=== PATIENT | female | born 1955 | race Caucasian/White ===

== ENCOUNTER 2017-03-25 09:11 | Emergency (ER) | payer OTHER ==
[2017-03-25 10:42] LABS: Hematocrit 42 % (35-47); Hemoglobin 14.5 g/dl (12.0-16.0); Mean Corpuscular HGB Conc 35 g/dl (31-36); Mean Corpuscular Hemoglobin 32 pg (27-31); Mean Corpuscular Volume 91 fL (80-97); Mean Platelet Volume 8 um3 (7.4-10.4); Red Blood Count 4.58 10^6/ul (4.0-5.4); Red Cell Distribution Width 13 % (10.5-15); White Blood Count 8.2 10^3/ul (3.5-10.8)
[2017-03-25 10:58] LABS: ALT 14 U/L (7-52); AST 18 U/L (13-39); Albumin 4.6 g/dL (3.2-5.2); Alkaline Phosphatase 81 U/L (34-104); Anion Gap 11 mmol/L (2-11); BUN/Creatinine Ratio 22.2 (8-20); Blood Urea Nitrogen 16 mg/dL (6-24); CO2 Carbon Dioxide 24 mmol/L (22-32); Calcium 10.1 mg/dL (8.6-10.3); Chloride 100 mmol/L (101-111); EGFR African American 105.9 (>60); EGFR Non-African American 82.3 (>60); Globulin 2.8 g/dL (2-4); Glucose 114 mg/dL (70-100); Potassium 3.6 mmol/L (3.5-5.0); Sodium 135 mmol/L (133-145); Total Protein 7.4 g/dL (6.4-8.9)
[2017-03-25 11:12] LABS: C Reactive Protein 3.64 mg/L (< 5.00); Magnesium 1.6 mg/dL (1.9-2.7)
[2017-03-25 11:24] LABS: Acetaminophen < 15 mcg/mL; Alcohol < 10 mg/dL (<10); Salicylate < 2.50 mg/dL (<30)
[2017-03-25 11:39] LABS: TSH (Thyroid Stimulating Horm) 0.16 mcIU/mL (0.34-5.60)
[2017-03-25] MEDS ORDERED: Magnesium Oxide TAB* 400 MG PO ONE (12:32)
--- NOTE | 2017-03-25 12:58 | ED ---
Complex/Multi-Sys Presentation - HPI Summary HPI Summary: Pt here w/ multiple sx. Has had anxiety which is worsening d/t work situation ( employed at [employer]). She is in counseling and taking zoloft but anxiety worse despite these therapies. She is here today as she has persistent tinnitus (has this intermittently since childhood but never this long in duration). She also had a 1 x episode of tunnel vision while writing out a list but this corrected and has not returned - no other changes in vision. Furthermore she has intermittent chest pain but reports she has discussed this w/ her PCP and had w/ u. She also states she's not having chest pain now. Gets intermittent SOB w/ acute anxiety situations - this improves when anxiety improves. Reports mild and brief epistaxis this morning - she was able to control this with applying pressure - resolved and no return. She is prone to epistaxis and admits her house is dry. No other areas of bleeding/bruising upon inquiry, no h/o bleeding d/o and no anti-coagulants. She has HTN (controlled with medications), hypercholesterolemia and thyroid d/o (this gland was removed in her youth). She' s been on replacement hormone daily - takes synthroid which was greatly reduced recently 2 months ago - feels only in the past 2 days that her heart palpitations have resolved. Has not had repeat thyroid labs since reduction of dose that she's aware. Additionally admits she holds her stress in her abdomen and had excessive diarrhea Monday - stomach is uncomfortable in general/IBS? Denies yo pain and no dysuria, vaginal d/c. Upon review of blood pressure today, pt reports she's typically in the 110's systolic so 150s' is high for her. "Pre-diabetes" - hga1c <6 but PCP has her on metformin for prophylaxis Fam h/o Cardiac events in 40's. No recent head injury. - History Of Current Complaint Chief Complaint: EDGeneral Time Seen by Provider: 03/25/17 09:57 Hx Obtained From: Patient - Allergies/Home Medications Allergies/Adverse Reactions: Allergies Allergy/AdvReac Type Severity Reaction Status Date / Time seafood Allergy Unknown Vomiting Uncoded 10/12/12 13:14 PMH/Surg Hx/FS Hx/Imm Hx Previously Healthy: No - thyroid medication dose currently being adjusted Endocrine/Hematology History: Reports: Hx Diabetes - prophylaxis - takes metformin, Hx Thyroid Disease - hypo Cardiovascular History: Reports: Hx Hypercholesterolemia - statin, Hx Hypertension - beta olman Respiratory History: Reports: Other Respiratory Problems/Disorders - ex-smoker GI History: Reports: Hx Irritable Bowel - ?? Psychiatric History: Reports: Hx Anxiety, Hx Depression - Cancer History Hx Chemotherapy: No Hx Radiation Therapy: No - Surgical History Surgery Procedure, Year, and Place: 1974 [place]- hyperthyroid, 1980 [place]- tonsils, dental surgery, (left) ovary dermoid cyst Infectious Disease History: No Infectious Disease History: Denies: Traveled Outside the [place] in Last 30 Days - Family History Known Family History: Positive: Cardiac Disease - Social History Occupation: Employed Full-time - [employer] Lives: With Family - Alcohol Use: Rare Hx Substance Use: No Substance Use Type: Reports: None Hx Tobacco Use: No Smoking Status (MU): Never Smoked Tobacco Review of Systems Constitutional: Negative Negative: Fever, Chills, Fatigue Eyes: Negative Negative: Photophobia, Blurred Vision, Diplopia, Drainage, Erythema Positive: Epistaxis - earlier - not now. Negative: Dental Pain, Sore Throat, Ear Ache, Nasal Discharge Cardiovascular: Negative Negative: Palpitations, Chest Pain Respiratory: Negative Negative: Shortness Of Breath, Cough Gastrointestinal: Negative Negative: Abdominal Pain, Vomiting, Diarrhea, Nausea Positive: no symptoms reported Musculoskeletal: Negative Skin: Negative Neurological: Negative Positive: Anxious All Other Systems Reviewed And Are Negative: Yes Physical Exam Triage Information Reviewed: Yes Vital Signs On Initial Exam: Initial Vitals Temp Pulse Resp BP Pulse Ox 98.7 F 76 17 152/85 99 03/25/17 09:13 03/25/17 09:13 03/25/17 09:13 03/25/17 09:13 03/25/17 09:13 Vital Signs Reviewed: Yes Appearance: Positive: Well-Appearing - anxious, No Pain Distress, Well-Nourished Skin: Positive: Warm, Dry - apepars to have rosacea Head/Face: Positive: Normal Head/Face Inspection Eyes: Positive: Normal, EOMI, MATHIEU, Conjunctiva Clear, Other: - vision intact ENT: Positive: Normal ENT inspection, Hearing grossly normal, Pharynx normal, TMs normal. Negative: Nasal congestion, Nasal drainage, Trismus, Muffled voice Neck: Positive: Supple, Nontender, No Lymphadenopathy Respiratory/Lung Sounds: Positive: Clear to Auscultation, Breath Sounds Present. Negative: Decreased Breath Sounds, Rales, Rhonchi, Subcutaneous Emphysema, Stridor, Tracheal Deviation, Wheezes, Unable to speak in full sentences, Fatigue Cardiovascular: Positive: Normal, RRR, Pulses are Symmetrical in both Upper and Lower Extremities, S1, S2. Negative: Murmur, Rub, Leg Edema Left, Leg Edema Right Abdomen Description: Positive: Nontender, No Organomegaly, Soft Bowel Sounds: Positive: Present Musculoskeletal: Positive: Normal, Strength/ROM Intact Neurological: Positive: Normal, Sensory/Motor Intact, Alert, Oriented to Person Place, Time, CN Intact II-III Psychiatric: Positive: Anxious - pressured speech, upset, tearful when talking about work - Jd Coma Scale Coma Scale Total: 15 Diagnostics - Vital Signs Vital Signs Temp Pulse Resp BP Pulse Ox 03/25/17 11:30 57 13 136/75 96 03/25/17 11:19 57 11 147/81 98 03/25/17 11:00 59 20 144/91 96 03/25/17 10:52 60 96 03/25/17 10:50 154/87 03/25/17 09:13 98.7 F 76 17 152/85 99 - Laboratory Lab Results: Lab Results 03/25/17 03/25/17 03/25/17 Range/Units 10:27 10:27 10:27 WBC 8.2 (3.5-10.8) 10^3/ul RBC 4.58 (4.0-5.4) 10^6/ul Hgb 14.5 (12.0-16.0) g/dl Hct 42 (35-47) % MCV 91 (80-97) fL MCH 32 H (27-31) pg MCHC 35 (31-36) g/dl RDW 13 (10.5-15) % Plt Count 323 (150-450) 10^3/ul MPV 8 (7.4-10.4) um3 Neut % (Auto) 56.6 (38-83) % Lymph % (Auto) 33.3 (25-47) % [place] % (Auto) 6.0 (1-9) % Eos % (Auto) 2.9 (0-6) % Baso % (Auto) 1.2 (0-2) % Absolute Neuts (auto) 4.6 (1.5-7.7) 10^3/ul Absolute Lymphs (auto) 2.7 (1.0-4.8) 10^3/ul Absolute Monos (auto) 0.5 (0-0.8) 10^3/ul Absolute Eos (auto) 0.2 (0-0.6) 10^3/ul Absolute Basos (auto) 0.1 (0-0.2) 10^3/ul Absolute Nucleated RBC 0 10^3/ul Nucleated RBC % 0 INR (Anticoag Therapy) 0.86 L (0.89-1.11) APTT 28.4 (26.0-36.3) seconds Sodium 135 (133-145) mmol/L Potassium 3.6 (3.5-5.0) mmol/L Chloride 100 L (101-111) mmol/L Carbon Dioxide 24 (22-32) mmol/L Anion Gap 11 (2-11) mmol/L BUN 16 (6-24) mg/dL Creatinine 0.72 (0.51-0.95) mg/dL Est GFR ( Amer) 105.9 (>60) Est GFR (Non-Af Amer) 82.3 (>60) BUN/Creatinine Ratio 22.2 H (8-20) Glucose 114 H (70-100) mg/dL Lactic Acid (0.5-2.0) mmol/L Calcium 10.1 (8.6-10.3) mg/dL Magnesium 1.6 L (1.9-2.7) mg/dL Total Bilirubin 0.80 (0.2-1.0) mg/dL AST 18 (13-39) U/L ALT 14 (7-52) U/L Alkaline Phosphatase 81 (34-104) U/L Troponin I 0.00 (<0.04) ng/mL C-Reactive Protein 3.64 (< 5.00) mg/L Total Protein 7.4 (6.4-8.9) g/dL Albumin 4.6 (3.2-5.2) g/dL Globulin 2.8 (2-4) g/dL Albumin/Globulin Ratio 1.6 (1-3) TSH 0.16 L (0.34-5.60) mcIU/mL Salicylates < 2.50 (<30) mg/dL Acetaminophen < 15 mcg/mL Serum Alcohol < 10 (<10) mg/dL 03/25/ Range/Units 10:27 WBC (3.5-10.8) 10^3/ul RBC (4.0-5.4) 10^6/ul Hgb (12.0-16.0) g/dl Hct (35-47) % MCV (80-97) fL MCH (27-31) pg MCHC (31-36) g/dl RDW (10.5-15) % Plt Count (150-450) 10^3/ul MPV (7.4-10.4) um3 Neut % (Auto) (38-83) % Lymph % (Auto) (25-47) % [place] % (Auto) (1-9) % Eos % (Auto) (0-6) % Baso % (Auto) (0-2) % Absolute Neuts (auto) (1.5-7.7) 10^3/ul Absolute Lymphs (auto) (1.0-4.8) 10^3/ul Absolute Monos (auto) (0-0.8) 10^3/ul Absolute Eos (auto) (0-0.6) 10^3/ul Absolute Basos (auto) (0-0.2) 10^3/ul Absolute Nucleated RBC 10^3/ul Nucleated RBC % INR (Anticoag Therapy) (0.89-1.11) APTT (26.0-36.3) seconds Sodium (133-145) mmol/L Potassium (3.5-5.0) mmol/L Chloride (101-111) mmol/L Carbon Dioxide (22-32) mmol/L Anion Gap (2-11) mmol/L BUN (6-24) mg/dL Creatinine (0.51-0.95) mg/dL Est GFR ( Amer) (>60) Est GFR (Non-Af Amer) (>60) BUN/Creatinine Ratio (8-20) Glucose (70-100) mg/dL Lactic Acid 1.5 (0.5-2.0) mmol/L Calcium (8.6-10.3) mg/dL Magnesium (1.9-2.7) mg/dL Total Bilirubin (0.2-1.0) mg/dL AST (13-39) U/L ALT (7-52) U/L Alkaline Phosphatase (34-104) U/L Troponin I (<0.04) ng/mL C-Reactive Protein (< 5.00) mg/L Total Protein (6.4-8.9) g/dL Albumin (3.2-5.2) g/dL Globulin (2-4) g/dL Albumin/Globulin Ratio (1-3) TSH (0.34-5.60) mcIU/mL Salicylates (<30) mg/dL Acetaminophen mcg/mL Serum Alcohol (<10) mg/dL Result Diagrams: 03/25/17 10:27 03/25/17 10:27 Lab Statement: Any lab studies that have been ordered have been reviewed, and results considered in the medical decision making process. Re-Evaluation - Re-Evaluation First Eval Change: Improved - Anxiety and blood pressure improved w/ deep breathing/ relaxation over time - 120's/70's; her facial rosacea improved (more clear) - her demeanor is significantly improved Complex Multi-Symp Course/Dx Course Of Treatment: Pt presents w/ multiple sx as in HPI. Labs and ECG (sinus sasha 58 bpm - normal for beta olman use) ordered to assess for medical pathology. She was found to have low magnesium, most likely d/t diarrhea she had earlier in the week. Low magnesium may contribute to elevated BP. She was also found to have low TSH level which may be related to her anxiety. Replaced mag PO here and advised f/u w/ PCP for further adjustment of syhthroid dose ( did not adjust meds here today and advised pt to avoid adjusting on her own - will call PCP Monday). Her BP improved significantly simply w/ relaxation ( initially offered anxiolytic med but she wanted to try on her own - she was successful). She reports tinnitus is eliminated, vision has been clear and stable - no chest pain or SOB while here. She feels much better and ready to go home. Will take out of work until cleared by PCP as her anxiety may be induced by her hyperthyroid state. Discussed danger s/sx of when to return to ED. - Diagnoses Provider Diagnoses: Hypothyroid, Anxiety, Stress reaction Discharge - Discharge Plan Condition: Stable Disposition: HOME Patient Education Materials: Stress (ED), Hypothyroidism (ED), Hypertension (ED ), Anxiety (ED) Forms: *Work Release Referrals: Kelly Lang MD [Primary Care Provider] - Additional Instructions: Your blood pressure was elevated today however you were able to reduce this with relaxation techniques. It is suspected your anxiety may be caused by your thyroid in a hyper state. Discuss adjusting synthroid medication with your PCP - call Monday. In the meantime, continue relaxation techniques as without them, your blood pressure is elevated. However with them, your blood pressure is well controlled and your symptoms of tinnitus are resolved. Your magnesium level was also found to be low - this was most likely from your recent diarrhea. You were given a dose here - this may continue to aid in lowering your blood pressure. Again, follow-up with PCP Monday for reassessment of magnesium level. *If you develop headache, chest pain, change in vision, return of tinnitus, fatigue, weakness, syncope, return to ED
[2017-03-25 13:39] VITALS: BP 123/75
== END 2017-03-25 13:40 | disposition home or self-care (01) ==
LOC: ED 09:11
DX: E03.9 Hypothyroidism, unspecified (principal); F41.9 Anxiety disorder, unspecified; F43.9 Reaction to severe stress, unspecified; R04.0 Epistaxis
CPT/HCPCS: 36415; 80053; 80320; 80329; 83605; 83735; 84443; 84484; 85025; 85610; 85730; 86140; 93005; 99282; G0480

== ENCOUNTER 2019-04-10 14:04 | Emergency (ER) | payer OTHER ==
--- OUTSIDE RECORDS SUMMARY | 2019-04-10 14:12 | XMS REPORT | Continuity of Care Document ---
:1955 External Reference #:[id number] Author Name Atiya Delgadillo MD (transmitted by agent of provider Amna Lal) Address [address], [place] [address] Care Team Providers Name Role Phone Dai Garcia NP - Family Care Team Information Gis Programmer [phone] Soraya David M.D. - Family Medicine Care Team Information Gis Programmer [phone] Problems Active Problems Provider Date Hyperlipidemia Juhi Miles M.D., FACP Onset: 10/21/2010 Type 2 diabetes mellitus Juhi Miles M.D., FACP Onset: 10/18/2011 Benign hypertension Dai Garcia, N.P. Onset: 07/22/2014 Hypothyroidism Dai Garcia N.Cooper Onset: 07/22/2014 Social History Type Date Description Comments Sex Unknown ETOH Use Currently consumes alcohol 3 large [employer]in [employer] Tonics a day Tobacco Use Start: Unknown End: Patient is a former smoker age 15-28, less than a Unknown pack a day Smoking Status Reviewed: 03/26/19 Patient is a former smoker age 16-28, less than a pack a day Allergies, Adverse Reactions, Alerts Active Allergies Reaction Severity Comments Date No Known Drug Allergy 07/01/2009 Seafood 11/17/2009 Shellfish-Derived Products 11/26/2018 Medications Active Medications SIG Qnty Indications Ordering Date Provider Levothyroxine Sodium one by mouth daily 90tabs E03.9 Soraya David MD 12/24 on empty stomach 137mcg Tablets Calcium one po daily, wait 4 90tabs M80.00xA Soraya David MD 12/24/2018 Carb-Cholecalciferol hrs afttr taking levothyroxine [id number]-Ohey Tablets Prolia one sc every 6 1ml M80.00xA Soraya David MD 12/24/2018 60mg/ml Soln months Prefill Syringe Losartan 1 by mouth every day Dai Garcia 11/26/2018 Potassium/Hydrochlor N.P. othiazide 100-25mg Tablets Metformin HCL ER take 2 tablets by 180tabs Soraya David MD mouth at dinner 500mg Tablets ER daily 24HR Nadolol 1 by mouth every day Unknown 20mg Tablets B Complete once a day Unknown Tablets Sertraline HCL 1 by mouth every day Unknown 50mg Tablets History Medications Losartan Potassium 1 by mouth every Dai Garcia, N.P. 11/26/2018 - 100mg day 11/26/2018 Tablets Immunizations CPT Code Status Date Vaccine Lot # [id number] Given 10/02/2015 Pneumonia Vaccine [id number] Given 11/01/2011 Tdap - Tetanus/Diptheria/Acellular Pertussis [id number] Given 10/18/2011 Zoster (Zostavax) [id number] Given 04/13/2006 Influenza Virus 3Yrs & Over [id number] Given 04/13/2006 Influenza Virus 3Yrs & Over [id number] Given 10/18/2002 Tetanus And Diptheria (Td) For Adult Use Preservative Free Vital Signs Date Vital Result Comment 03/26/2019 9:05am Height 66.5 inches 5'6.50" Weight 206.00 lb Heart Rate 60 /min BP Systolic Sitting 146 mmHg Lue reg cuff BP Diastolic Sitting 78 mmHg Lue reg cuff O2 % BldC Oximetry 96 % BMI (Body Mass Index) 32.7 kg/m2 12/24/2018 10:33am Height 66.5 inches 5'6.50" Weight 205.50 lb Heart Rate 54 /min BP Systolic Sitting 139 mmHg Rue reg cuff BP Diastolic Sitting 75 mmHg Rue reg cuff O2 % BldC Oximetry 99 % BMI (Body Mass Index) 32.7 kg/m2 Results Test Acquired Date Facility Test Result H/L Range Note Laboratory test 11/26/2018 [facility] TSH 0.11 mcIU/mL Low 0.34-5.[address] ([place] [address] Stim Horm) [phone] Free T4 (Free Thyroxine) 1.33 ng/dL High 0.61-1.12 Basic Metabolic 11/26/2018 [facility] Sodium 137 mmol/L Normal 135-145 Panel [address] [place], [place] [id number] [phone] Potassium 4.1 mmol/L Normal 3.5-5.0 Chloride 100 mmol/L Low 101-111 Co2 Carbon Dioxide 27 mmol/L Normal 22-32 Anion Gap 10 mmol/L Normal 2-11 Glucose 104 mg/dL High 70-100 Blood Urea Nitrogen 20 mg/dL Normal 6-24 Creatinine 0.95 mg/dL Normal 0.51-0.95 BUN/Creatinine Ratio 21.1 High 8-20 Calcium 9.4 mg/dL Normal 8.6-10.3 Egfr Non- 59.6 >60 Egfr 72.1 >60 1 Laboratory test 11/26/2018 [facility] Hemoglobin A1c 5.6 % Normal 4.0-5.6 2 finding 101 (Glyco HGB) [place], [place] [id number] [phone] Liver Function 11/26/2018 [facility] Total Protein 6.9 g/dL Normal 6.4-8.9 Panel [address] [place] [address] [phone] Albumin 4.4 g/dL Normal 3.2-5.2 Globulin 2.5 g/dL Normal 2-4 Albumin/Globulin Ratio 1.8 Normal 1-3 Total Bilirubin 0.80 mg/dL Normal 0.2-1.0 Direct Bilirubin 0.10 mg/dL Normal 0.03-0.18 Indirect Bilirubin 0.7 mg/dL Normal 0.3-1.0 Alkaline Phosphatase 84 U/L Normal 34-104 Alt 15 U/L Normal 7-52 Ast 18 U/L Normal 13-39 Lipid Profile 11/26/2018 [facility] Triglycerides 318 mg/dL 3 (Trig/Chol/HDL) [address] [place] [address] [phone] Cholesterol 227 mg/dL 4 HDL Cholesterol 48.2 mg/dL 5 LDL Cholesterol 115 mg/dL 6 Laboratory test 11/26/2018 [facility] Vitamin B12 500 pg/mL Normal 180-914 7 finding [address] [facility] [place] [address] [phone] Vitamin B1 (Whole Blood) 190 nmol/L Abnormal 70-180 8 1 Because ethnic data is not always readily available, this report includes an eGFR for both -Americans and non- Americans. The National Kidney Disease Education Program (NKDEP) does not endorse the use of the MDRD equation for patients that are not between the ages of 18 and 70, are , have extremes of body size, muscle mass, or nutritional status, or are non- or non-. According to the National Kidney Foundation, irrespective of diagnosis, the stage of the disease is based on the level of kidney function: Stage Description GFR(mL/min/1.73 m(2)) 1 Kidney damage with normal or decreased GFR 90 2 Kidney damage with mild decrease in GFR 60-89 3 Moderate decrease in GFR 30-59 4 Severe decrease in GFR 15-29 5 Kidney failure <15 (or dialysis) 2 Therapeutic target for the treatment of diabetes mellitus patients is <7% HBA1C, and in selective patients <6.0%. Please refer to [employer] Diabetes Association diabetic care guidelines for further information. 3 Desirable: <150 Borderline High: 150-199 High: 200-499 Very High: >500 4 Desirable: <200 Borderline High: 200-239 High: >239 5 Low: <40 Desirable: 40-60 High: >60 6 Desirable: <100 Near Optimal: 100-129 Borderline High: 130-159 High: 160-189 Very High: >189 7 Normal Range 180 to 914 Indeterminate Range 145 to 180 Deficient Range <145 8 ADDITIONAL INFORMATION This test was developed and its performance characteristics determined by [facility] in a manner consistent with CLIA requirements. This test has not been cleared or approved by the U.S. Food and Drug Administration. Test Performed by: [facility] [address] [place] [address] Procedures Date Code Description Status 02/04/2019 [id number] Diabetic Retinal Eye Exam Completed 03/02/2016 [id number] Diabetic Retinal Eye Exam Completed 11/14/2014 [id number] Mammogram Completed 04/21/2014 [id number] Diabetic Retinal Eye Exam Completed 04/13/2012 [id number] Diabetic Retinal Eye Exam Completed 02/10/2012 [id number] Mammogram Completed 01/20/2011 [id number] Diabetic Foot Exam Completed 11/02/2009 [id number] Colonoscopy Completed 08/02/2007 [id number] Mammogram Completed 10/13/2005 [id number] Bone Mineral Density Test Completed 12/03/2003 [id number] Mammogram Completed 05/19/2003 [id number] Mammogram Completed Medical Devices Description No Information Available Encounters Type Date Location Provider Dx Diagnosis Office Visit 12/24/2018 [facility] Soraya David MD E03.9 Hypothyroidism, 10:40a Medicine - Ccmob unspecified S32.020D Wedge comprsn fx second lum vert, subs for fx w routn heal E88.81 Metabolic syndrome M80.08xD Age-rel osteopor w crnt path fx, verteb, 7thD Office Visit 11/26/2018 8:20a [facility] Soraya David, E03.9 Hypothyroidism, Medicine - MD unspecified Ccmob I10 Essential (primary) hypertension R73.01 Impaired fasting glucose E78.5 Hyperlipidemia, unspecified K58.2 Mixed irritable bowel syndrome M54.5 Low back pain Assessments Date Code Description Provider 03/26/2019 M85.89 Other specified disorders of bone density and Atiya Delgadillo MD structure, multiple sites 03/26/2019 E03.9 Hypothyroidism, unspecified Atiya Delgadillo MD 03/26/2019 S32.020D Wedge compression fracture of second lumbar Atiya Delgadillo MD vertebra, subsequent encounter for fracture with routine healing 03/26/2019 I10 Essential (primary) hypertension Atiya Delgadillo MD 03/26/2019 R73.01 Impaired fasting glucose Atiya Delgadillo MD 03/26/2019 Z12.31 Encounter for screening mammogram for Atiya Delgadillo MD malignant neoplasm of breast 03/26/2019 Z12.11 Encounter for screening for malignant Atiya Delgadillo MD neoplasm of colon 12/24/2018 E03.9 Hypothyroidism, unspecified Soraya David MD 12/24/2018 S32.020D Wedge compression fracture of second lumbar Soraya David MD vertebra, subsequent encounter for fracture with routine healing 12/24/2018 E88.81 Metabolic syndrome Soraya David MD 12/24/2018 M80.08xD Age-related osteoporosis with current Soraya David MD pathological fracture, vertebra(e), subsequent encounter for fracture with routine healing 11/26/2018 E03.9 Hypothyroidism, unspecified Soraya David MD 11/26/2018 I10 Essential (primary) hypertension Soraya David MD 11/26/2018 R73.01 Impaired fasting glucose Soraya David MD 11/26/2018 E78.5 Hyperlipidemia, unspecified Soraya David MD 11/26/2018 K58.2 Mixed irritable bowel syndrome Soraya David MD 11/26/2018 M54.5 Low back pain Soraya David MD Plan of Treatment Future Appointment(s):09/24/2019 9:40 am - [facility] - Atiya Delgadillo, MDM85.89 Other specified disorders of bone density and structure, multiple sitesComments:Start Alendronate to be sent to [facility] RxFollow up:6 yodgdiT47.9 Hypothyroidism, unspecifiedNew Labs:CBC No Diff, Ordered: 03/26/19Comments:Labs eowleA09.020D Wedge compression fracture of second lumbar vertebra, subsequent encounter for fracture with routine [id number] Essential (primary) gykdgqskzmbkK97.01 Impaired fasting xgnrrooH29.31 Encounter for screening mammogram for malignant neoplasm of qpbhteQ40.11 Encounter for screening for malignant neoplasm of colonReferral:Edwin Mitchell MD, Gastroenterology Functional Status Description No Information Available Mental Status Description No Information Available Referrals Refer to Reason for Referral Status Appt Date Edwin Mitchell MD Created [address] [place] [address] [phone] [facility] pt with metabolic syndrome, needs Closed dietary guidance [address] [place], [place] [address] [phone]
[2019-04-10 14:15] VITALS: BP 144/86
--- NOTE | 2019-04-10 14:37 | UC ---
Truncal Trauma HPI - HPI Summary HPI Summary: 64 yo female presents with rib injury. She tells me that yesterday around 1400 she was going down her steps and slipped on the ice. Her left posterior ribs impacted the steps and she had immediate pain. She has been managing this well with ibuprofen and ice. Today she has pain with deep breaths and movement and she feels that she hears a "crunching" at the site - concerning her for fracture. She denies LOC, SOB, chest pain, abdominal pain, n/v, hematuria. - History Of Current Complaint Chief Complaint: UCTrauma Stated Complaint: FELL PAIN IN RIB AREA Time Seen by Provider: 04/10/19 14:37 Hx Obtained From: Patient Onset/Duration: Sudden Onset Severity Initially: Severe Severity Currently: Severe Pain Intensity: 9 Pain Scale Used: 0-10 Numeric - Allergies/Home Medications Allergies/Adverse Reactions: Allergies Allergy/AdvReac Type Severity Reaction Status Date / Time seafood Allergy Unknown Vomiting Uncoded 04/10/19 14:15 PMH/Surg Hx/FS Hx/Imm Hx Endocrine History: Diabetes, Hypothyroidism Cardiovascular History: Hypertension - Surgical History Surgical History: Yes Surgery Procedure, Year, and Place: 1974 [place]- hyperthyroid, 1980 [place]- tonsils, dental surgery, (left) ovary dermoid cyst - Family History Known Family History: Positive: Cardiac Disease - Social History Lives: With Family Alcohol Use: Rare Substance Use Type: None Smoking Status (MU): Former Smoker Review of Systems All Other Systems Reviewed And Are Negative: No Constitutional: Positive: Negative Skin: Positive: Negative Respiratory: Positive: Negative Cardiovascular: Positive: Negative Gastrointestinal: Positive: Negative Neurovascular: Positive: Negative Musculoskeletal: Positive: Other: - Left rib injury Neurological: Positive: Negative Psychological: Positive: Negative Physical Exam - Summary Physical Exam Summary: GENERAL: NAD. WDWN. No pain distress. SKIN: No rashes, sores, lesions, or open wounds. NECK: Supple. Nontender. No lymphadenopathy. CHEST: CTAB. No accessory muscle use. Breathing comfortably and in no distress. CV: RRR. Pulses intact. Cap refill <2seconds ABDOMEN: NTTP. No ecchymosis. MSK: Left posterior ribs with moderate TTP about ~9th rib. Mild ecchymosis to the area. No open wound. NEURO: Alert. PSYCH: Age appropriate behavior. Triage Information Reviewed: Yes Vital Signs: Initial Vital Signs Temp 98 F 04/10/19 14:11 Pulse 64 04/10/19 14:11 Resp 16 04/10/19 14:11 BP 144/86 04/10/19 14:11 Pulse Ox 98 04/10/19 14:11 Laboratory Tests 04/10/19 14:58 POC Urine Color Yellow POC Urine Clarity Clear POC Urine pH 6.0 POC Ur Specif [place] 1.015 POC Urine Protein Negative POC Ur Glucose (UA) Negative POC Urine Ketones Negative POC Urine Blood Negative POC Urine Nitrite Negative POC Urine Bilirubin Negative POC Urine Urobilinogen 0.2 POC U Leukocyte Esteras Trace A Vital Signs Reviewed: Yes Diagnostics - Radiology Left rib XR Radiology Interpretation Completed By: Radiologist Summary of Radiographic Findings: IMPRESSION: NO DISPLACED RIB FRACTURE OR PNEUMOTHORAX. Truncal Trauma Course/Dx - Course Course Of Treatment: XR as above. UA as above and without blood. Suspect rib contusion. Advised to continue tylenol, as she states ibuprofen makes her nauseous. Also recommended OTC lidocaine/lidoderm patch for discomfort. F/u with PCP within 1 week if symptoms have not improved - Differential Dx/Diagnosis Provider Diagnosis: Rib contusion Discharge ED - Sign-Out/Discharge Documenting (check all that apply): Patient Departure All imaging exams completed and their final reports reviewed: Yes - Discharge Plan Condition: Stable Disposition: HOME Patient Education Materials: Rib Contusion (ED) Referrals: Soraya David MD [Primary Care Provider] - Additional Instructions: If you develop a fever, shortness of breath, chest pain, new or worsening symptoms - please call your PCP or go to the ED immediately. Your blood pressure was high at todays visit. Please see your primary provider within 4 weeks for recheck and re-evaluation. Take tylenol as directed for your discomfort. Apply ice to the area to decrease pain. May use an [id number] lidocaine patch as directed for pain relief. - Billing Disposition and Condition Condition: STABLE Disposition: Home
== END 2019-04-10 15:28 | disposition home or self-care (01) ==
LOC: UCEAST 14:04
DX: S20.212A Contusion of left front wall of thorax, initial encounter (principal); Z91.013 Allergy to seafood; Z87.891 Personal history of nicotine dependence; W00.1XXA Fall from stairs and steps due to ice and snow, initial encounter; Y92.9 Unspecified place or not applicable
CPT/HCPCS: 81003; 87086; 99211; G0463

== ENCOUNTER 2021-03-01 15:19 | Observation (INO) ==
[2021-03-01] MEDS ORDERED: Iodixanol (CONTRAST) 320 MG/ML 100 ML SDV IV ONE (15:37)
[2021-03-01] MEDS ORDERED: ALTEPLASE IV ONE (15:48)
[2021-03-01] MEDS ORDERED: Alteplase (100 mg Vial) 100 MG in Premix IV 100 ML IV ONE (15:48)
[2021-03-01] MEDS ORDERED: Alteplase (100 mg Vial) 100 mg VIAL IV ONE ×2 (15:51)
[2021-03-01 16:00] LABS: ABS Basophils 0.1 10^3/ul (0-0.2); ABS Eosinophils 0.2 10^3/ul (0-0.6); ABS Lymphocytes 2.8 10^3/ul (1.0-4.8); ABS Monocytes 0.6 10^3/ul (0-0.8); ABS Neutrophils 4.1 10^3/ul (1.5-7.7); Eosinophil % 2.2 %; Hematocrit 36 % (35-47); Hemoglobin 12.1 g/dL (12.0-16.0); Lymphocyte % 36.1 %; Mean Corpuscular HGB Conc 34 g/dL (31-36); Mean Corpuscular Hemoglobin 29 pg (27-31); Mean Corpuscular Volume 86 fL (80-97); Mean Platelet Volume 8.9 fL (7.4-10.4); Platelet Count 308 10^3/uL (150-450); Red Blood Count 4.14 10^6 /uL (3.70-4.87); Red Cell Distribution Width 15 % (10-15); White Blood Count 7.6 10^3/uL (3.5-10.8)
[2021-03-01 16:06] LABS: INR 1.14 (0.86-1.15)
[2021-03-01 16:34] LABS: Troponin I 0.01 ng/mL (<0.03)
[2021-03-01 16:35] LABS: ALT 14 U/L (7-52); AST 13 U/L (13-39); Albumin 3.7 g/dL (3.2-5.2); Albumin/Globulin Ratio 1.6 (1-3); Alkaline Phosphatase 80 U/L (35-149); Anion Gap 5 mmol/L (2-11); Blood Urea Nitrogen 15 mg/dL (6-24); CO2 Carbon Dioxide 28 mmol/L (22-32); Chloride 105 mmol/L (101-111); Cholesterol 111 mg/dL; Globulin 2.3 g/dL (2-4); Glucose 87 mg/dL (70-100); HDL Cholesterol 33.2 mg/dL; LDL Cholesterol 36 mg/dL; Potassium 3.9 mmol/L (3.5-5.0); Sodium 138 mmol/L (135-145); Triglycerides 210 mg/dL
[2021-03-01] MEDS ORDERED: Dextrose 50% Syringe 50 ml 25 GM/50 ML SYRINGE IV PUSH PRN (17:42)
[2021-03-01] MEDS ORDERED: NS 0.9% 1000 ml BAG 1,000 ML IV SCH (17:45)
[2021-03-01 19:06] LABS: Rapid COVID-19 Molecular Undetected (Undetected)
[2021-03-01] MEDS: Heparin 5000 UNITS/ML 1 mL VIAL SUBCUT SCH (21:41)
[2021-03-02] MEDS: Heparin 5000 UNITS/ML 1 mL VIAL SUBCUT SCH (06:55)
[2021-03-02] MEDS ORDERED: Perflutren Lipid Microsphere 3 ML VIAL ONE (07:51)
[2021-03-02] MEDS ORDERED: Aspirin EC 81 mg TAB.EC (enteric coated) PO SCH (09:00)
[2021-03-02 11:59] VITALS: BP 92/65
== END 2021-03-02 15:45 | disposition home or self-care (01) ==
LOC: ED 15:19 → MEDTELE 18:19 → INTOOBSV 18:19 → MEDTELE 20:08
PROVIDERS: ADMIT Internal Medicine; ATTEND Internal Medicine